=== PATIENT | female | born 1940 | race Caucasian/White ===

== ENCOUNTER → 2017-01-18 | Outpatient (CLI) | payer MEDICARE ==
[~2017-01-18] MED LIST: LOTR5CAP3 PO; SIMV5TAB32 PO; TAB-TAB PO
[2017-01-18 11:52] LABS: AUTOMATED NEUTROPHIL # 3.1 TH/MM3 (1.8-7.7); BASOPHIL % 0.4 % (0.0-2.0); EOSINOPHIL # 0.2 TH/MM3 (0-0.4); EOSINOPHIL % 4.1 % (0.0-4.0); HEMATOCRIT 41.7 % (35.0-46.0); HEMO FLAGS DIFF FINAL; LYMPH % 26.3 % (9.0-44.0); LYMPHOCYTE # 1.4 TH/MM3 (1.0-4.8); MEAN CELL VOLUME 93.4 FL (80.0-100.0); MEAN CORPUSCULAR HEMOGLOBIN 32.8 PG (27.0-34.0); MEAN CORPUSCULAR HGB CONC 35.2 % (32.0-36.0); MONO % 11.3 % (0.0-8.0); NEUT % 57.9 % (16.0-70.0); PLATELET COUNT 265 TH/MM3 (150-450); RED BLOOD COUNT 4.46 MIL/MM3 (4.00-5.30); RED CELL DISTRIBUTION WIDTH 12.7 % (11.6-17.2); WHITE BLOOD COUNT 5.4 TH/MM3 (4.0-11.0)
[2017-01-18 11:58] LABS: BACTERIA, URINE RARE /hpf; BLOOD, URINE SMALL (NEG); GLUCOSE,URINE NEG (NEG); KETONE, URINE NEG (NEG); MUCUS URINE MOD /lpf (OCC); NITRITE,URINE NEG (NEG); PH, URINE 5.5 (5.0-8.5); SQUAMOUS EPITHELIAL CELL URINE 9 /hpf (0-5); URINE COLOR YELLOW (YELLW/STRAW)
[2017-01-18 12:18] LABS: ALT (GPT) 21 U/L (10-53); ANION GAP 8 MEQ/L (5-15); AST (GOT) 16 U/L (15-37); BICARBONATE 27.6 MEQ/L (21.0-32.0); BLOOD UREA NITROGEN 15 MG/DL (7-18); CHLORIDE 103 MEQ/L (98-107); GLOMERULAR FILTRATION RATE 86 ML/MIN (>89); GLUCOSE,FASTING 87 MG/DL (74-99); SODIUM (NA) 139 MEQ/L (136-145)
[2017-01-18 12:20] LABS: ALKALINE PHOSPHATASE 59 U/L (45-117); HDL CHOLESTEROL 94.7 MG/DL (40.0-60.0); LDL CHOLESTEROL 88 MG/DL (0-99); TOTAL BILIRUBIN ADULT 0.7 MG/DL (0.2-1.0)
[2017-01-18 12:22] LABS: CREATINE KINASE 91 U/L (26-192)
== END ==
LOC: CLAB 11:23
DX: I10 Essential (primary) hypertension (principal); E78.5 Hyperlipidemia, unspecified
CPT/HCPCS: 36415; 80053; 80061; 81001; 82550; 84443; 85025

== ENCOUNTER → 2017-02-01 | Outpatient (CLI) | payer MEDICARE ==
[2017-02-01 14:25] LABS: BLOOD, URINE TRACE (NEG); COMMENT (UR) CULT NOT INDICATED; CULTURE IF INDICATED CULT NOT INDICATED; GLUCOSE,URINE NEG (NEG); KETONE, URINE NEG (NEG); MUCUS URINE FEW /lpf (OCC); NITRITE,URINE NEG (NEG); PH, URINE 5.5 (5.0-8.5); SQUAMOUS EPITHELIAL CELL URINE 1 /hpf (0-5); URINE COLOR YELLOW (YELLW/STRAW)
== END ==
LOC: CLAB 13:04
DX: N39.0 Urinary tract infection, site not specified (principal)
CPT/HCPCS: 81001

== ENCOUNTER → 2017-08-02 | Outpatient (CLI) | payer MEDICARE ==
--- NOTE | 2017-07-25 11:32 | MH ---
cc: [facility], KERMIT MANZANO DATE OF ADMISSION: 08/02/2017 ADMISSION DIAGNOSIS Cloudy posterior capsule, right eye. HISTORY OF PRESENT ILLNESS This 77-year-old white female is coming through [facility] for the purpose of a YAG laser posterior capsulotomy of the right eye. She has a history of bilateral cataract surgery with intraocular lens implants in the past and has already had a YAG laser posterior capsulotomy in her left eye. She now notices decreasing acuity in the right eye and would like to have a YAG laser posterior capsulotomy in that eye. PAST MEDICAL HISTORY The patient has a history of hypertension, cholesterol problems and arthritis. PAST SURGICAL HISTORY Surgical history includes the bilateral cataract surgery and the YAG laser posterior capsulotomy in the left eye. She also has had a hip replacement and hernia surgery. MEDICATIONS Daily medications include: 1. Amlodipine. 2. Benazepril. 3. Zetia. 4. Aspirin 81 mg a day. ALLERGIES She has no known allergies. SOCIAL HISTORY, FAMILY HISTORY AND REVIEW OF SYSTEMS Noncontributory. OCULAR EXAM On ocular exam the patient's best-corrected visual acuity is 20/60 in the right eye and 20/25 +2 in the left. Visual alfaro are full to confrontation testing. Extraocular muscle exam reveals full versions with orthophoria at distance and near. Pupils are 3 mm in the right eye, 2.5 in the left, round and reactive to light without afferent defect. Anterior segment examination reveals dermatochalasis of the eyelid skin. A posterior chamber intraocular lens is in place bilaterally with a cloudy posterior capsule in the right eye and a YAG laser posterior capsulotomy in the left. Intraocular pressure is 15 in each eye by applanation tonometry. Dilated fundus exam reveals sharp disks with cup-to-disk ratio 0.35 bilaterally. There is some mild drusen and retinal pigment epithelial changes in both macula. A posterior vitreous detachment is present bilaterally with some drusen noted superonasally in the left fundus. IMPRESSION 1. Cloudy posterior capsule, right eye. 2. Pseudophakia, both eyes. 3. Posterior vitreous detachment, both eyes. 4. Early macular degeneration, dry form, both eyes. PLAN YAG laser posterior capsulotomy of the right eye through [facility].. MD ANEUDY Grace/GERONIMO /11:13 AM /11:22 AM
[~2017-08-02] MED LIST changes: +FLUOROMETHOLONE 0.25% OPHT SUSP 5 ML BTL ONE; +FLUOROMETHOLONE 0.25% OPHT SUSP 5 ML BTL RIGHT EYE ONE; +PHENYLEPHRINE HCL 2.5% OPTH SOLN 2 ML BTL ONE; +PHENYLEPHRINE HCL 2.5% OPTH SOLN 2 ML BTL RIGHT EYE ONE; +PROPARACAINE HCL 0.5% OPHT SOLN 15 ML BTL ONE; +PROPARACAINE HCL 0.5% OPHT SOLN 15 ML BTL RIGHT EYE ONE; +TROPICAMIDE 1% OPHT SOLN 15 ML BTL ONE; +TROPICAMIDE 1% OPHT SOLN 15 ML BTL RIGHT EYE ONE
--- NOTE | 2017-08-02 11:10 | MP ---
cc: KERMIT CANTOR M.D. DATE OF SURGERY 08/02/2017 PREOPERATIVE DIAGNOSIS Cloudy posterior capsule right eye. POSTOPERATIVE DIAGNOSIS Cloudy posterior capsule right eye. OPERATION YAG laser posterior capsulotomy, right eye. SURGEON Kermit Cantor MD ANESTHESIA Topical COMPLICATIONS None INDICATIONS See history and physical previously dictated. PROCEDURE The patient arrived at [facility]. Blood pressure was 138/86, pulse 72, respirations 16. A drop of Alphagan P and Mydriacyl were instilled in the right eye. The patient was seated at the YAG laser. A drop of Alcaine was instilled in the right eye and a YAG laser posterior capsulotomy lens was placed on the anterior surface of the right cornea. YAG laser posterior capsulotomy was carried out utilizing 103 exposures of 1.6 millijoules. An adequate opening was seen following the procedure. A drop of Alphagan P was instilled topically. The patient was given a prescription for a topical steroid to be used four times per day and has an appointment for follow up on the first postoperative day in my office. The patient left the [facility] in satisfactory condition. MD ANEUDY Grace/KATIA /10:28 AM /11:05 AM .4
== END ==
LOC: PHSDC 07:48
PROVIDERS: ATTEND Ophthalmology
DX: H26.491 Other secondary cataract, right eye (principal); H35.3131 Nonexudative age-related macular degeneration, bilateral, early dry stage; H43.813 Vitreous degeneration, bilateral; Z96.1 Presence of intraocular lens; I10 Essential (primary) hypertension; Z96.649 Presence of unspecified artificial hip joint; Z79.82 Long term (current) use of aspirin

== ENCOUNTER → 2017-08-21 | Outpatient (CLI) | payer MEDICARE ==
[~2017-08-21] MED LIST changes: -FLUOROMETHOLONE 0.25% OPHT SUSP 5 ML BTL ONE; -FLUOROMETHOLONE 0.25% OPHT SUSP 5 ML BTL RIGHT EYE ONE; -PHENYLEPHRINE HCL 2.5% OPTH SOLN 2 ML BTL ONE; -PHENYLEPHRINE HCL 2.5% OPTH SOLN 2 ML BTL RIGHT EYE ONE; -PROPARACAINE HCL 0.5% OPHT SOLN 15 ML BTL ONE; -PROPARACAINE HCL 0.5% OPHT SOLN 15 ML BTL RIGHT EYE ONE; -TROPICAMIDE 1% OPHT SOLN 15 ML BTL ONE; -TROPICAMIDE 1% OPHT SOLN 15 ML BTL RIGHT EYE ONE
[2017-08-21 11:20] LABS: ANION GAP 9 MEQ/L (5-15); AST (GOT) 18 U/L (15-37); BICARBONATE 25.5 MEQ/L (21.0-32.0); BLOOD UREA NITROGEN 11 MG/DL (7-18); CHLORIDE 101 MEQ/L (98-107); GLOMERULAR FILTRATION RATE 112 ML/MIN (>89); GLUCOSE,FASTING 93 MG/DL (74-99); POTASSIUM 4.5 MEQ/L (3.5-5.1); SODIUM (NA) 135 MEQ/L (136-145)
[2017-08-21 11:24] LABS: ALKALINE PHOSPHATASE 68 U/L (45-117); ALT (GPT) 23 U/L (10-53); CREATINE KINASE 103 U/L (26-192); TOTAL BILIRUBIN ADULT 0.7 MG/DL (0.2-1.0)
== END ==
LOC: CLAB 10:23
DX: I10 Essential (primary) hypertension (principal)
CPT/HCPCS: 36415; 80053; 82550

== ENCOUNTER → 2018-01-01 | Outpatient (CLI) | payer MEDICARE ==
[2018-01-01 11:49] LABS: AUTOMATED NEUTROPHIL # 2.6 TH/MM3 (1.8-7.7); BASOPHIL % 0.6 % (0.0-2.0); EOSINOPHIL # 0.3 TH/MM3 (0-0.4); EOSINOPHIL % 5.5 % (0.0-4.0); HEMOGLOBIN 13.8 GM/DL (11.6-15.3); LYMPH % 20.6 % (9.0-44.0); MEAN CELL VOLUME 95.1 FL (80.0-100.0); MEAN CORPUSCULAR HEMOGLOBIN 33.6 PG (27.0-34.0); MEAN CORPUSCULAR HGB CONC 35.4 % (32.0-36.0); MEAN PLATELET VOLUME 6.7 FL (7.0-11.0); MONO % 17.1 % (0.0-8.0); MONOCYTE # 0.8 TH/MM3 (0-0.9); NEUT % 56.2 % (16.0-70.0); PLATELET COUNT 246 TH/MM3 (150-450); RED CELL DISTRIBUTION WIDTH 12.3 % (11.6-17.2); WHITE BLOOD COUNT 4.7 TH/MM3 (4.0-11.0)
[2018-01-01 12:11] LABS: ALBUMIN 3.7 GM/DL (3.4-5.0); ALT (GPT) 16 U/L (10-53); AST (GOT) 15 U/L (15-37); BICARBONATE 28.5 MEQ/L (21.0-32.0); BLOOD UREA NITROGEN 12 MG/DL (7-18); CALCIUM 9.1 MG/DL (8.5-10.1); CHLORIDE 99 MEQ/L (98-107); CHOLESTEROL 177 MG/DL (120-200); CREATININE 0.61 MG/DL (0.50-1.00); GLOMERULAR FILTRATION RATE 96 ML/MIN (>89); GLUCOSE,FASTING 81 MG/DL (74-99); SODIUM (NA) 134 MEQ/L (136-145)
[2018-01-01 12:21] LABS: ALKALINE PHOSPHATASE 79 U/L (45-117); CHOLESTEROL/ HDL RATIO 1.95 RATIO; HDL CHOLESTEROL 90.7 MG/DL (40.0-60.0); LDL CHOLESTEROL 76 MG/DL (0-99); TOTAL BILIRUBIN ADULT 0.5 MG/DL (0.2-1.0); TOTAL PROTEIN 6.9 GM/DL (6.4-8.2); TRIGLYCERIDES 50 MG/DL (42-150)
== END ==
LOC: CLAB 10:18
DX: I10 Essential (primary) hypertension (principal); E78.5 Hyperlipidemia, unspecified
CPT/HCPCS: 36415; 80053; 80061; 82550; 84443; 85025